=== PATIENT | male | born 1990 | race Caucasian/White ===

== ENCOUNTER 2020-12-16 11:50 | Emergency (ER) | payer OTHER ==
[~2020-12-16] VITALS: Ht 182.9 cm; Wt 97.5 kg
[2020-12-16 12:43] LABS: BASOPHILS ABSOLUTE AUTO 0.08 K/mm3 (0.00-0.23); BASOPHILS PERCENT AUTO 1 % (0-2); EOSINOPHILS ABSOLUTE AUTO 1.95 K/mm3 (0.00-0.68); EOSINOPHILS PERCENT AUTO 15 % (0-6); Hematocrit 45.6 % (37.0-53.0); Hemoglobin 15.8 g/dL (13.5-17.5); IMMATURE GRAN ABSOLUTE AUTO 0.04 K/mm3 (0.00-0.10); IMMATURE GRAN PERCENT AUTO 0 % (0-1); LYMPHOCYTES ABSOLUTE AUTO 1.68 K/mm3 (0.84-5.20); LYMPHOCYTES PERCENT AUTO 13 % (21-46); MONOCYTES ABSOLUTE AUTO 0.84 K/mm3 (0.16-1.47); MONOCYTES PERCENT AUTO 7 % (4-13); Mean Corpuscular HGB 30.7 pg (26.0-34.0); Mean Corpuscular HGB Conc 34.6 g/dL (31.5-36.5); Mean Corpuscular Volume 89 fL (80-100); Mean Platelet Volume 11.2 fL (9.1-12.4); NEUTROPHILS ABSOLUTE AUTO 8.07 K/mm3 (1.96-9.15); NEUTROPHILS PERCENT AUTO 64 % (41-73); Platelet Count 238 K/mm3 (150-400); RDW Standard Deviation 42.4 fL (35.1-46.3); Red Blood Cell Count 5.15 M/mm3 (4.30-5.90); White Blood Cell Count 12.66 K/mm3 (4.00-11.30)
[2020-12-16 12:53] LABS: Alanine Aminotransfer (ALT/SGP 37 U/L (12-78); Albumin, Blood 3.9 g/dL (3.4-5.0); Alk Phos 138 U/L (50-136); Anion Gap 5 mmol/L (6-16); Aspartate Aminotrans (AST/SGOT 24 U/L (12-37); Bilirubin, Total 0.3 mg/dL (0.1-1.0); Blood Urea Nitrogen 8 mg/dL (8-24); Bun/Creatinine Ratio 9.8 (12.0-20.0); CO2, Blood 25 mmol/L (21-32); Calcium, Blood 9.1 mg/dL (8.5-10.1); Chloride, Blood 109 mmol/L (98-108); Creatinine, Blood 0.82 mg/dL (0.60-1.20); Globulin, Blood 3.9 g/dL (2.2-4.0); Glomerular Filtration Rate >60 (60-); Glucose, Blood 92 mg/dL (70-99); Potassium, Blood 3.8 mmol/L (3.5-5.5); Sodium, Blood 139 mmol/L (136-145); Total Protein, Blood 7.8 g/dL (6.4-8.2)
[2020-12-16] MEDS ORDERED: Mucinex600 MG PO (13:36)
[2020-12-16] MEDS ORDERED: Prednisone20 MG PO (13:43)
== END 2020-12-16 14:17 | disposition home or self-care (01) ==
LOC: ER 11:50
PROVIDERS: Physician Assistant
DX: J32.0 Chronic maxillary sinusitis (principal)
CPT/HCPCS: 36415; 80053; 85025; 96374; 96375; 99284; J1885; J2405

== ENCOUNTER 2021-04-30 18:52 | Emergency (ER) | payer OTHER ==
[~2021-04-30] VITALS: Ht 182.9 cm; Wt 99.8 kg
[~2021-04-30 18:52] MED LIST: Mucinex600 MG PO; Prednisone20 MG PO
[2021-04-30] MEDS ORDERED: Prednisone50 MG PO (22:13)
== END 2021-04-30 22:20 | disposition home or self-care (01) ==
LOC: ER 18:52
DX: T78.3XXA Angioneurotic edema, initial encounter (principal)
CPT/HCPCS: 99283; A9270; J1100

== ENCOUNTER 2021-10-15 23:57 | Emergency (ER) | payer OTHER ==
[~2021-10-15] VITALS: Ht 182.9 cm; Wt 99.8 kg
[~2021-10-15 23:57] MED LIST changes: +Prednisone50 MG PO
[2021-10-16] MEDS ORDERED: PRED20 PO (03:35)
[2021-10-16] MEDS ORDERED: FAMO20 PO (03:35)
[2021-10-16] MEDS ORDERED: EPIPEN0.3 MG/0.1 IM (03:35)
== END 2021-10-16 04:15 | disposition home or self-care (01) ==
LOC: ER 23:57
DX: T78.3XXA Angioneurotic edema, initial encounter (principal); Z79.52 Long term (current) use of systemic steroids; Z79.899 Other long term (current) drug therapy
CPT/HCPCS: 94640; 94664; 96374; 96376; 96376-59; 99285-25; J1100; J1200; J2405; J2930; J7030

== ENCOUNTER 2024-01-31 00:32 | Emergency (ER) | payer OTHER ==
[~2024-01-31] VITALS: Ht 182.9 cm; Wt 104.3 kg
[~2024-01-31 00:32] MED LIST changes: +EPIPEN0.3 MG/0.1 IM; +FAMO20 PO; +PRED20 PO
[2024-01-31 01:03] LABS: BASOPHILS ABSOLUTE AUTO 0.03 K/mm3 (0.00-0.23); BASOPHILS PERCENT AUTO 0 % (0-2); EOSINOPHILS ABSOLUTE AUTO 0.02 K/mm3 (0.00-0.68); EOSINOPHILS PERCENT AUTO 0 % (0-6); Hematocrit 42.8 % (37.0-53.0); Hemoglobin 14.5 g/dL (13.5-17.5); IMMATURE GRAN ABSOLUTE AUTO 0.06 K/mm3 (0.00-0.10); IMMATURE GRAN PERCENT AUTO 1 % (0-1); LYMPHOCYTES ABSOLUTE AUTO 0.64 K/mm3 (0.84-5.20); LYMPHOCYTES PERCENT AUTO 7 % (21-46); MONOCYTES ABSOLUTE AUTO 0.83 K/mm3 (0.16-1.47); MONOCYTES PERCENT AUTO 8 % (4-13); Mean Corpuscular HGB 31.4 pg (26.0-34.0); Mean Corpuscular HGB Conc 33.9 g/dL (31.5-36.5); Mean Corpuscular Volume 93 fL (80-100); NEUTROPHILS PERCENT AUTO 84 % (41-73); RDW Coefficient Variation 13.2 % (11.7-14.2); RDW Standard Deviation 44.5 fL (35.1-46.3); Red Blood Cell Count 4.62 M/mm3 (4.30-5.90); White Blood Cell Count 9.88 K/mm3 (4.00-11.30)
[2024-01-31 01:06] LABS: Mean Platelet Volume 11.1 fL (9.1-12.4); Platelet Count 176 K/mm3 (150-400)
[2024-01-31] MEDS ORDERED: Ketorolac Tromethamine 15mg Vial IV ONE (01:10)
[2024-01-31] MEDS ORDERED: Lactated Ringer's 1,000 ML IV ONE (01:10)
[2024-01-31] MEDS ORDERED: Ondansetron HCl 2 MG / ML 2ML Vial IV ONE (01:10)
[2024-01-31 01:44] LABS: Influenza B, PCR NEGATIVE (NEGATIVE); Resp Syncytial Virus, PCR NEGATIVE (NEGATIVE); SARS-Cov-2 (COVID-19) PCR, MMC NEGATIVE (NEGATIVE)
[2024-01-31 01:50] LABS: Albumin, Blood 3.8 g/dL (3.4-5.0); Albumin/Globulin Ratio 1.1 (0.8-1.8); Bilirubin, Total 0.3 mg/dL (0.1-1.0); Bun/Creatinine Ratio 13.7 (12.0-20.0); Calcium, Blood 8.5 mg/dL (8.5-10.1); Creatinine, Blood 1.02 mg/dL (0.60-1.20); Globulin, Blood 3.6 g/dL (2.2-4.0); Total Protein, Blood 7.4 g/dL (6.4-8.2)
[2024-01-31] MEDS ORDERED: Acetaminophen 325 MG TABLET PO ONE (03:45)
[2024-01-31 04:06] LABS: Influenza A, PCR POSITIVE (NEGATIVE)
[2024-01-31 05:00] VITALS: BP 121/63
== END 2024-01-31 05:08 | disposition home or self-care (01) ==
LOC: ER 00:32
PROVIDERS: Student in an Organized Health Care Education/Training Program
DX: J11.1 Influenza due to unidentified influenza virus with other respiratory manifestations (principal); Z79.899 Other long term (current) drug therapy
CPT/HCPCS: 0241U; 71045; 80053; 83690; 84484; 85025; 93005; 93010; 96374; 96375; 99285-25; A9270; J1885; J2405; J7120

== ENCOUNTER 2024-04-17 08:28 | Day surgery (SDC) | payer OTHER ==
[~2024-04-17] VITALS: Ht 182.9 cm; Wt 103.0 kg
[~2024-04-17 08:28] MED LIST changes: +EPINEPhrine HCl 1 MG / ML 30ML Vial ONE; +Lactated Ringer's 1,000 ML IV ONE; +Lidocaine 1%-Epineph 1:200000 30 ML SDV ONE
[2024-04-17] MEDS ORDERED: Lactated Ringer's 1,000 ML IV ONE ×2 (09:28→11:42)
[2024-04-17] MEDS ORDERED: Tranexamic Acid 100 ML IV ONE (09:40)
[2024-04-17] MEDS ORDERED: propofoL 20 ML IV ONE (10:04)
[2024-04-17] MEDS ORDERED: Rocuronium Bromide 10 MG/ML 5ML Injection IV ONE ×2 (10:04→10:15)
[2024-04-17] MEDS ORDERED: FentaNYL Citrate 50 MCG/ML 2 ML Injection ONE ×2 (10:05→13:58)
[2024-04-17] MEDS ORDERED: Ondansetron HCl 2 MG / ML 2ML Vial ONE ×3 (10:24→14:29)
[2024-04-17] MEDS ORDERED: Dexamethasone Sod Phos 10 MG/ML 1ML VIAL ONE (10:24)
--- NOTE | 2024-04-17 10:51 | NUR ---
04/17/24 1051 Elenita Tyson STARTED BY DR. OJEDA AT [id number]
[2024-04-17] MEDS ORDERED: HYDROmorphone HCl/Pf 1MG SYR ONE (10:58)
[2024-04-17] MEDS ORDERED: EPINEPhrine HCl 1 MG / ML 30ML Vial ONE (11:32)
[2024-04-17 14:10] VITALS: BP 134/91
[2024-04-17] MEDS ORDERED: Metoclopramide HCl 5MG / ML 2ML Vial ONE (14:32)
[2024-04-17] MEDS ORDERED: Metoclopramide HCl 5MG / ML 2ML Vial IV ONE (14:45)
== END 2024-04-17 15:01 | disposition home or self-care (01) ==
LOC: ORSCSDS 08:28
PROVIDERS: Otolaryngology
PROC: 099R4ZZ Drainage of Left Maxillary Sinus, Percutaneous Endoscopic Approach (ICD-10-PCS; principal; 2024-04-17 10:00)
PROC: 09DU4ZZ Extraction of Right Ethmoid Sinus, Percutaneous Endoscopic Approach (ICD-10-PCS; principal; 2024-04-17 10:00)
PROC: 09DV4ZZ Extraction of Left Ethmoid Sinus, Percutaneous Endoscopic Approach (ICD-10-PCS; principal; 2024-04-17 10:00)
DX: J32.4 Chronic pansinusitis (principal); Z79.899 Other long term (current) drug therapy
CPT/HCPCS: 88305; 88311; C2625; J0171; J1100; J1171; J2405; J2704; J2765; J3010; J7120

== ENCOUNTER 2024-06-03 10:10 | Emergency (ER) | payer OTHER ==
[~2024-06-03] VITALS: Ht 182.9 cm; Wt 104.3 kg
[~2024-06-03 10:10] MED LIST changes: -EPINEPhrine HCl 1 MG / ML 30ML Vial ONE; -Lactated Ringer's 1,000 ML IV ONE; -Lidocaine 1%-Epineph 1:200000 30 ML SDV ONE
[2024-06-03 10:17] VITALS: BP 129/83
[2024-06-03] MEDS ORDERED: Ondansetron 4 MG SoluTab SL ONE (10:20)
[2024-06-03 11:08] LABS: Influenza A, PCR NEGATIVE (NEGATIVE); Resp Syncytial Virus, PCR NEGATIVE (NEGATIVE); SARS-Cov-2 (COVID-19) PCR, MMC NEGATIVE (NEGATIVE)
[2024-06-03 11:11] LABS: Influenza B, PCR POSITIVE (NEGATIVE)
[2024-06-03 11:16] LABS: BASOPHILS ABSOLUTE AUTO 0.02 K/mm3 (0.00-0.23); BASOPHILS PERCENT AUTO 0 % (0-2); EOSINOPHILS PERCENT AUTO 0 % (0-6); Hematocrit 41.8 % (37.0-53.0); Hemoglobin 14.6 g/dL (13.5-17.5); IMMATURE GRAN ABSOLUTE AUTO 0.03 K/mm3 (0.00-0.10); IMMATURE GRAN PERCENT AUTO 0 % (0-1); LYMPHOCYTES ABSOLUTE AUTO 0.88 K/mm3 (0.84-5.20); LYMPHOCYTES PERCENT AUTO 9 % (21-46); MONOCYTES ABSOLUTE AUTO 0.34 K/mm3 (0.16-1.47); MONOCYTES PERCENT AUTO 4 % (4-13); Mean Corpuscular HGB 30.5 pg (26.0-34.0); Mean Corpuscular HGB Conc 34.9 g/dL (31.5-36.5); Mean Corpuscular Volume 87 fL (80-100); Mean Platelet Volume 11.3 fL (9.1-12.4); NEUTROPHILS ABSOLUTE AUTO 8.24 K/mm3 (1.96-9.15); NEUTROPHILS PERCENT AUTO 87 % (41-73); Platelet Count 148 K/mm3 (150-400); RDW Coefficient Variation 12.5 % (11.7-14.2); RDW Standard Deviation 40.2 fL (35.1-46.3); Red Blood Cell Count 4.78 M/mm3 (4.30-5.90); White Blood Cell Count 9.51 K/mm3 (4.00-11.30)
[2024-06-03] MEDS ORDERED: NS 1,000 ML IV SCH (11:30)
[2024-06-03 11:35] LABS: Albumin, Blood 3.9 g/dL (3.4-5.0); Bilirubin, Total 0.3 mg/dL (0.1-1.0); Bun/Creatinine Ratio 9.8 (12.0-20.0); Calcium, Blood 8.2 mg/dL (8.5-10.1); Creatinine, Blood 0.92 mg/dL (0.60-1.20); Globulin, Blood 3.8 g/dL (2.2-4.0); Potassium, Blood 3.4 mmol/L (3.5-5.5); Total Protein, Blood 7.7 g/dL (6.4-8.2)
[2024-06-03] MEDS ORDERED: Potassium Chloride 10 Meq Tablet SA PO ONE (11:50)
[2024-06-03] MEDS ORDERED: Acetaminophen 325 MG TABLET PO ONE (13:05)
[2024-06-03] MEDS ORDERED: ONDA4ODT MM (13:14)
== END 2024-06-03 13:31 | disposition home or self-care (01) ==
LOC: ER 10:10
PROVIDERS: Physician Assistant
DX: J10.1 Influenza due to other identified influenza virus with other respiratory manifestations (principal); E86.0 Dehydration; R11.10 Vomiting, unspecified; Z79.52 Long term (current) use of systemic steroids
CPT/HCPCS: 0241U; 71046; 80053; 85025; 93005; 93010; 96374; 99284-25; A9270; J7030